=== PATIENT | female | born 1980 | race Caucasian/White ===

== ENCOUNTER → 2025-08-23 14:19 | Outpatient (REF) | payer OTHER, SELFPAY | LOC: RAD 14:19 | PROVIDERS: ATTENDING PHYSICIAN Hospitalist | DX: S63.92XA Sprain of unspecified part of left wrist and hand, initial encounter (principal); S66.912A Strain of unspecified muscle, fascia and tendon at wrist and hand level, left hand, initial encounter | CPT/HCPCS: 73100; 73130 ==